=== PATIENT | male | born 1955 | race Caucasian/White ===

== ENCOUNTER 2017-02-18 08:26 | Outpatient (CLI) | payer MEDICARE, MEDICAID | END 2017-02-18 08:27 | disposition home or self-care (01) | DX: I25.10 Atherosclerotic heart disease of native coronary artery without angina pectoris (principal) ==

== ENCOUNTER 2017-05-30 06:09 | Emergency (ER) | payer MEDICARE, MEDICAID ==
--- NOTE | 2017-05-30 07:02 | XRAY Preliminary Report ---
Exam: XR Foot 3 View LT IMPRESSION: 1. No acute fracture or dislocation seen. [facility] SITE ID: [id number]
--- NOTE | 2017-05-30 07:03 | XRAY Preliminary Report ---
Exam: XR Tib/Fib LT IMPRESSION: 1. No acute osseous abnormality seen. 2. Soft tissue swelling. [facility] SITE ID: [id number]
--- NOTE | 2017-05-30 07:04 | XRAY Report ---
EXAM: LEFT FOOT RADIOGRAPHY EXAM DATE: 05/30/2017 06:52 AM. CLINICAL HISTORY: Pain after injury. COMPARISON: None. TECHNIQUE: 3 views. FINDINGS: Bones: No acute fracture seen. Joints: No dislocation. Joint spaces are relatively well preserved. Soft Tissues: Soft tissue swelling. IMPRESSION: 1. No acute fracture or dislocation seen. [facility] Referring Provider Line: [phone] SITE ID: [id number]
--- NOTE | 2017-05-30 07:05 | XRAY Report ---
EXAM: LEFT TIBIA/FIBULA RADIOGRAPHY EXAM DATE: 05/30/2017 06:52 AM. CLINICAL HISTORY: Pain after injury. COMPARISON: None. TECHNIQUE: 2 views. FINDINGS: Bones: No acute fracture seen. Joints: No dislocation. No obvious joint effusion. Soft Tissues: Soft tissue swelling. IMPRESSION: 1. No acute osseous abnormality seen. 2. Soft tissue swelling. [facility] Referring Provider Line: [phone] SITE ID: [id number]
[2017-05-30] MEDS ORDERED: cefTRIAXone 1 GM VIAL IM STA (07:35)
[2017-05-30] MEDS ORDERED: TETANUS/DIPHTHERIA/PERTUSSIS 0.5 ML SYRINGE IM ONE ×2 (07:35→07:46)
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
[2017-05-30] MEDS ORDERED: LIDOCAINE 1% 2 ML VIAL ONE (07:45)
[2017-05-30] MEDS ORDERED: cefTRIAXone 1 GM VIAL ONE (07:46)
[2017-05-30 08:17] VITALS: BP 130/65
== END 2017-05-30 08:17 | disposition home or self-care (01) ==
LOC: ED 06:09
DX: T24.231A Burn of second degree of right lower leg, initial encounter (principal); T31.0 Burns involving less than 10% of body surface; S80.12XA Contusion of left lower leg, initial encounter; S90.32XA Contusion of left foot, initial encounter; S80.812A Abrasion, left lower leg, initial encounter; V28.4XXA Motorcycle driver injured in noncollision transport accident in traffic accident, initial encounter; Y92.410 Unspecified street and highway as the place of occurrence of the external cause; L03.116 Cellulitis of left lower limb; Z23 Encounter for immunization; I10 Essential (primary) hypertension; E11.9 Type 2 diabetes mellitus without complications; Z79.84 Long term (current) use of oral hypoglycemic drugs; Z79.02 Long term (current) use of antithrombotics/antiplatelets; Z95.5 Presence of coronary angioplasty implant and graft; F17.200 Nicotine dependence, unspecified, uncomplicated
CPT/HCPCS: 90471; 96372; 99283

== ENCOUNTER 2017-06-04 08:00 | Outpatient (CLI) | payer MEDICARE, MEDICAID ==
[2017-06-04 14:03] LABS: BASOPHILS # (AUTO) 0.1 10^3/uL (0.0-0.1); BASOPHILS % (AUTO) 0.9 %; EOSINOPHILS # (AUTO) 0.1 10^3/uL (0.0-0.7); EOSINOPHILS % (AUTO) 0.7 %; HGB - HEMOGLOBIN 11.5 g/dL (14.0-18.0); LYMPHOCYTES # (AUTO) 1.4 10^3/uL (1.5-3.5); LYMPHOCYTES % (AUTO) 13.2 %; MEAN CORPUSCULAR HEMOGLOBIN 30.2 pg (27.0-31.0); MEAN CORPUSCULAR HGB CONC 33.8 g/dL (32.0-36.0); MEAN CORPUSCULAR VOLUME 89.3 fL (80.0-94.0); MEAN PLATELET VOLUME 9.4 fL (7.4-11.4); MONOCYTES # (AUTO) 1.1 10^3/uL (0.0-1.0); NEUTROPHILS % (AUTO) 75.2 %; RED BLOOD COUNT 3.81 10^6/uL (4.70-6.10); RED CELL DISTRIBUTION WIDTH 13.6 % (12.0-15.0); UNCORRECTED WHITE BLOOD COUNT 10.6 x10^3/uL; WHITE BLOOD COUNT 10.6 x10^3/uL (4.8-10.8)
[2017-06-04 14:29] LABS: BILIRUBIN,DIRECT 0.1 mg/dL (0.1-0.5); BUN - BLOOD UREA NITROGEN 19 mg/dL (6-20); CARBON DIOXIDE - CO2 23 mmol/L (21-32); CHLORIDE 102 mmol/L (101-111); CHOL/HDL RATIO 3.1 (<5.0); CHOLESTEROL 132 mg/dL; GFR - MDRD 76 (>89); GLUCOSE 180 mg/dL (70-100); HDL CHOLESTEROL 42 mg/dL; LDL/HDL RATIO 1.7 (<3.6); POTASSIUM 4.4 mmol/L (3.5-5.0); SODIUM 134 mmol/L (135-145); TOTAL PROTEIN 6.7 g/dL (6.7-8.2); TRIGLYCERIDES 83 mg/dL; VLDL CHOLESTEROL 17 mg/dL
[2017-06-04 14:55] LABS: HEMOGLOBIN A1C 0.6 g/dL
[2017-06-04 14:58] LABS: THYROID STIMULATING HORMONE 0.99 uIU/mL (0.34-5.60)
== END 2017-06-04 08:01 | disposition home or self-care (01) ==
LOC: LAB.N 08:00
DX: F31.9 Bipolar disorder, unspecified (principal)
CPT/HCPCS: 36415; 80053; 80061; 82248; 82306; 83036; 84439; 84443; 84481; 85025

== ENCOUNTER 2017-07-29 10:28 | Emergency (ER) | payer MEDICARE, MEDICAID ==
[2017-07-29 10:39] VITALS: BP 136/88
[2017-07-29 11:27] LABS: BILIRUBIN,URINE NEGATIVE (NEGATIVE)
[2017-07-29 11:28] LABS: UA CHARGE (STRIP ONLY) YES; UR CULTURE IF IND NOT INDICATED
== END 2017-07-29 12:10 | disposition left against medical advice (07) ==
LOC: ED 10:28
DX: F31.9 Bipolar disorder, unspecified (principal); Z53.21 Procedure and treatment not carried out due to patient leaving prior to being seen by health care provider
CPT/HCPCS: 80306; 81001; 81003; 87086; 99282

== ENCOUNTER 2017-08-09 20:21 | Outpatient (CLI) | payer MEDICARE, MEDICAID | END 2017-08-09 20:22 | disposition EMS.NT | LOC: EMS 20:21 | PROVIDERS: ATTEND Surgery | DX: S11.83XA Puncture wound without foreign body of other specified part of neck, initial encounter (principal); X99.1XXA Assault by knife, initial encounter ==

== ENCOUNTER 2018-01-20 11:40 | Outpatient (CLI) | payer MEDICARE, MEDICAID | END 2018-01-20 11:41 | disposition short-term general hospital (02) | LOC: EMS 11:40 | PROVIDERS: ATTEND Surgery | DX: R41.82 Altered mental status, unspecified (principal); R47.81 Slurred speech; R56.9 Unspecified convulsions | CPT/HCPCS: A0425; A0433 ==

== ENCOUNTER 2018-01-28 10:14 | Emergency (ER) | payer MEDICARE, MEDICAID ==
[2018-01-28 11:17] LABS: BILIRUBIN,URINE NEGATIVE (NEGATIVE); GLUCOSE, URINE (UA) NEGATIVE (NEGATIVE); KETONES,URINE (UA) NEGATIVE (NEGATIVE); LEUKOCYTE ESTERASE, URINE NEGATIVE (NEGATIVE); NITRITE,URINE NEGATIVE (NEGATIVE); OCCULT BLOOD,URINE NEGATIVE (NEGATIVE); PH,URINE 5.5 PH (5.0-7.5); PROTEIN,URINE NEGATIVE (NEGATIVE); UROBILINOGEN,URINE 0.2 (NORMAL) E.U./dL (NORMAL)
[2018-01-28 11:19] LABS: CLARITY,URINE CLEAR (CLEAR)
[2018-01-28] MEDS ORDERED: DEXAMETHASONE 10 MG/ML VIAL IVP STA (11:32)
[2018-01-28] MEDS ORDERED: SODIUM CHLORIDE 0.9% 1,000 ML IV ONE (11:32)
[2018-01-28 11:46] LABS: BASOPHILS # (AUTO) 0.1 10^3/uL (0.0-0.1); BASOPHILS % (AUTO) 0.7 %; EOSINOPHILS # (AUTO) 0.2 10^3/uL (0.0-0.7); EOSINOPHILS % (AUTO) 2.2 %; HGB - HEMOGLOBIN 12.9 g/dL (14.0-18.0); LYMPHOCYTES # (AUTO) 2.5 10^3/uL (1.5-3.5); LYMPHOCYTES % (AUTO) 26.3 %; MEAN CORPUSCULAR HEMOGLOBIN 29.6 pg (27.0-31.0); MEAN CORPUSCULAR HGB CONC 33.8 g/dL (32.0-36.0); MEAN CORPUSCULAR VOLUME 87.6 fL (80.0-94.0); MEAN PLATELET VOLUME 7.8 fL (7.4-11.4); MONOCYTES # (AUTO) 0.9 10^3/uL (0.0-1.0); MONOCYTES % (AUTO) 9.9 %; NEUTROPHILS # (AUTO) 5.7 10^3/uL (1.5-6.6); NEUTROPHILS % (AUTO) 60.9 %; PLT - PLATELET COUNT 301 10^3/uL (130-450); RED BLOOD COUNT 4.34 10^6/uL (4.70-6.10); RED CELL DISTRIBUTION WIDTH 14.5 % (12.0-15.0); WHITE BLOOD COUNT 9.4 x10^3/uL (4.8-10.8)
[2018-01-28 11:57] LABS: INR 1.1 (0.8-1.2); PT - PROTHROMBIN TIME 12.4 secs (9.9-12.6)
[2018-01-28 12:06] LABS: ALBUMIN 3.8 g/dL (3.2-5.5); ALBUMIN/GLOBULIN RATIO 1.1 (1.0-2.2); BILIRUBIN,TOTAL 0.5 mg/dL (0.2-1.0); CALCIUM 9.2 mg/dL (8.5-10.3); CREATININE 0.6 mg/dL (0.6-1.2); TOTAL PROTEIN 7.2 g/dL (6.7-8.2)
--- NOTE | 2018-01-28 12:29 | ED Physician Documentation ---
History of Present Illness - Stated complaint Stated Complaint: BACK PX - Chief complaint Chief Complaint: Back Pain - History obtained from History obtained from: Patient, Family - History of Present Illness Timing: Yesterday - Additonal information Additional information: 62 y/o male has had a recent CVA and he has returned from the hospital and has been doing well at home. He has developed some leg spasms and some pain in his back that is severe. He has been very uncomfortable with the spasms and they are well localized to the T/L junction on the left side and the spasms of the legs. Review of Systems Constitutional: denies: Fever Eyes: denies: Decreased vision Ears: denies: Ear pain Nose: denies: Rhinorrhea / runny nose, Congestion Throat: denies: Sore throat Cardiac: denies: Chest pain / pressure, Palpitations Respiratory: reports: Cough. denies: Dyspnea GI: denies: Abdominal Pain, Nausea, Vomiting : denies: Dysuria, Frequency Skin: denies: Rash Musculoskeletal: reports: Back pain, Extremity pain. denies: Neck pain, Joint pain, Extremity swelling Neurologic: denies: Generalized weakness, Focal weakness, Numbness PD PAST MEDICAL HISTORY - Past Medical History Cardiovascular: Hypertension Neuro: CVA Endocrine/Autoimmune: Type 2 diabetes Psych: Anxiety, Bipolar disorder - Past Surgical History Past Surgical History: Yes Cardiovascular: Coronary stent - Present Medications Home Medications: Ambulatory Orders Medication Instructions Recorded Confirmed Apixaban [Eliquis] 5 mg PO BID 01/28/18 Cyclobenzaprine [Flexeril] 10 mg PO TID PRN #20 tablet 01/28/18 HYDROcod/ACETAM 5/325 [[place] 5/325] 1 - 2 ea PO Q6H PRN #15 tablet 01/28/18 metFORMIN [Glucophage] 0 BID 01/28/18 - Allergies Allergies/Adverse Reactions: Allergies Allergy/AdvReac Type Severity Reaction Status Date / Time amoxicillin Allergy Unknown Verified 01/28/18 10:24 - Social History Does the pt smoke?: Yes Smoking Status: Current every day smoker Does the pt drink ETOH?: No Does the pt have substance abuse?: Yes - Immunizations Immunizations are current?: No - POLST Patient has POLST: No PD ED PE NORMAL - Vitals Vital signs reviewed: Yes (hypertensive mild ) - General General: Alert and oriented X 3, No acute distress, Well developed/nourished - HEENT HEENT: Atraumatic, PERRL, EOMI, Other (dry mucous membranes) - Neck Neck: Supple, no meningeal sign, No bony TTP - Cardiac Cardiac: RRR, No murmur - Respiratory Respiratory: No respiratory distress, Clear bilaterally, Other (There is pain to palpation to the paraspinous muscles on the left at the T/L junction ) - Abdomen Abdomen: Soft, Non tender - Back Back: Other (right paraspinous muscle tenderness) - Derm Derm: Normal color, Warm and dry, No rash - Extremities Extremities: No deformity, No edema - Neuro Neuro: Alert and oriented X 3, No motor deficit, No sensory deficit, Normal speech Eye Opening: Spontaneous Motor: Obeys Commands Verbal: Oriented GCS Score: 15 - Psych Psych: Normal mood, Normal affect Results - Vitals Vitals: Vital Signs - 24 hr 01/28/18 10:17 Temperature 36.3 C L Heart Rate 81 Respiratory 16 Rate Blood Pressure 128/92 H O2 Saturation 98 Oxygen O2 Source Room air - Labs Labs: Laboratory Tests 01/28/18 01/28/18 01/28/18 11:02 11:39 11:39 WBC 9.4 RBC 4.34 L Hgb 12.9 L Hct 38.1 L MCV 87.6 MCH 29.6 MCHC 33.8 RDW 14.5 Plt Count 301 MPV 7.8 Neut # 5.7 Lymph # 2.5 [place] # 0.9 Eos # 0.2 Baso # 0.1 Absolute Nucleated RBC 0.00 Nucleated RBC % 0.0 PT 12.4 INR 1.1 Sodium Potassium Chloride Carbon Dioxide Anion Gap BUN Creatinine Estimated GFR (MDRD) Glucose Calcium Total Bilirubin AST ALT Alkaline Phosphatase Troponin I Total Protein Albumin Globulin Albumin/Globulin Ratio Lipase Urine Color YELLOW Urine Clarity CLEAR Urine pH 5.5 Ur Specific [place] 1.020 Urine Protein NEGATIVE Urine Glucose (UA) NEGATIVE Urine Ketones NEGATIVE Urine Occult Blood NEGATIVE Urine Nitrite NEGATIVE Urine Bilirubin NEGATIVE Urine Urobilinogen 0.2 (NORMAL) Ur Leukocyte Esterase NEGATIVE Ur Microscopic Review NOT INDICATED Urine Culture Comments NOT INDICATED 01/28/18 01/28/18 11:39 11:39 WBC RBC Hgb Hct MCV MCH MCHC RDW Plt Count MPV Neut # Lymph # [place] # Eos # Baso # Absolute Nucleated RBC Nucleated RBC % PT INR Sodium 132 L Potassium 4.3 Chloride 99 L Carbon Dioxide 25 Anion Gap 8.0 BUN 21 H Creatinine 0.6 Estimated GFR (MDRD) 137 Glucose 109 H Calcium 9.2 Total Bilirubin 0.5 AST 17 ALT 31 Alkaline Phosphatase 60 Troponin I < 0.04 Total Protein 7.2 Albumin 3.8 Globulin 3.4 Albumin/Globulin Ratio 1.1 Lipase 10 L Urine Color Urine Clarity Urine pH Ur Specific [place] Urine Protein Urine Glucose (UA) Urine Ketones Urine Occult Blood Urine Nitrite Urine Bilirubin Urine Urobilinogen Ur Leukocyte Esterase Ur Microscopic Review Urine Culture Comments Procedures - IVC sono (time) 1135 Bedside IVC sono: IVC measures (cm) (1.09), IVC collapsed c insp (cm) (complete) , Dehydration (est 2 liter deficit) 1320 Bedside IVC sono: IVC measures (cm) (1.42), IVC collapsed c insp (cm) (0.88), Dehydration (minimal now) PD MEDICAL DECISION MAKING - ED course Complexity details: reviewed results, re-evaluated patient, considered differential, d/w patient, d/w family ED course: 62-year-old male with recent CVA has developed acute muscle spasm in his back and he is found to be dehydrated. He is administered a liter of saline and has improvement in his back pain with this. He is requesting some pain medication for over the weekend if his needed. He does have a history of diabetes but his sugars today are OK. Departure - Departure Disposition: 01 Home, Self Care Clinical Impression: Back muscle spasm, Dehydration Condition: Stable Instructions: ED Spasm Back No Trauma, ED Dehydration Follow-Up: Akbar Avina MD [Primary Care Provider] - Prescriptions: Cyclobenzaprine [Flexeril] 10 mg PO TID PRN #20 tablet PRN Reason: Spasms HYDROcod/ACETAM 5/325 [[place] 5/325] 1 - 2 ea PO Q6H PRN #15 tablet PRN Reason: Pain
[2018-01-28 13:33] VITALS: BP 135/96
== END 2018-01-28 13:30 | disposition home or self-care (01) ==
LOC: ED 10:14
DX: E86.0 Dehydration (principal); M62.830 Muscle spasm of back; I10 Essential (primary) hypertension; E11.9 Type 2 diabetes mellitus without complications; Z86.73 Personal history of transient ischemic attack (TIA), and cerebral infarction without residual deficits; Z79.84 Long term (current) use of oral hypoglycemic drugs; Z79.01 Long term (current) use of anticoagulants; F17.200 Nicotine dependence, unspecified, uncomplicated
CPT/HCPCS: 36415; 80053; 81001; 81003; 83690; 84484; 85025; 85610; 87086; 96361; 96374; 99283; 99284

== ENCOUNTER 2018-04-02 00:37 | Emergency (ER) | payer MEDICARE, MEDICAID ==
[2018-04-02 01:09] LABS: BASOPHILS # (AUTO) 0.1 10^3/uL (0.0-0.1); BASOPHILS % (AUTO) 1.4 %; EOSINOPHILS # (AUTO) 0.1 10^3/uL (0.0-0.7); EOSINOPHILS % (AUTO) 1.7 %; HGB - HEMOGLOBIN 14.6 g/dL (14.0-18.0); LYMPHOCYTES % (AUTO) 12.8 %; MEAN CORPUSCULAR HEMOGLOBIN 29.7 pg (27.0-31.0); MEAN CORPUSCULAR HGB CONC 34.3 g/dL (32.0-36.0); MEAN CORPUSCULAR VOLUME 86.5 fL (80.0-94.0); MEAN PLATELET VOLUME 8.9 fL (7.4-11.4); MONOCYTES # (AUTO) 0.9 10^3/uL (0.0-1.0); MONOCYTES % (AUTO) 10.7 %; NEUTROPHILS % (AUTO) 73.4 %; PLT - PLATELET COUNT 232 10^3/uL (130-450); RED BLOOD COUNT 4.92 10^6/uL (4.70-6.10); RED CELL DISTRIBUTION WIDTH 14.7 % (12.0-15.0); WHITE BLOOD COUNT 8.2 x10^3/uL (4.8-10.8)
[2018-04-02 01:22] LABS: ALBUMIN/GLOBULIN RATIO 1.1 (1.0-2.2); BILIRUBIN,TOTAL 1.2 mg/dL (0.2-1.0); TOTAL PROTEIN 7.5 g/dL (6.7-8.2)
[2018-04-02 01:28] LABS: TROPONIN I < 0.04 ng/mL (<0.49)
[2018-04-02 01:30] LABS: CREATINE KINASE MB 4.9 ng/mL (0.6-6.3)
[2018-04-02 01:32] LABS: CALCIUM 9.1 mg/dL (8.5-10.3)
--- NOTE | 2018-04-02 01:32 | ED Physician Documentation ---
PD HPI DYSPNEA - Stated complaint Stated Complaint: DIFF BREATHING - Chief complaint Chief Complaint: Resp - History obtained from History obtained from: Patient - History of Present Illness Timing - onset: How many days ago (2) Timing - duration: Days (2) Timing - details: Intermittant Improved by: Rest Worsened by: Exertion, Laying flat, Coughing Associated symptoms: Cough, Chest pain / discomfort (pleuritic). No: Fever - Additional information Additional information: complains of chest congestion, cough, pleuritic chest pain. Symptoms have been for two days. He feels shortness of breath at times. Review of Systems Constitutional: reports: Reviewed and negative Throat: denies: Sore throat Cardiac: reports: Chest pain / pressure (mild pleuritic chest pain). denies: Palpitations Respiratory: reports: Dyspnea (mild, intermittent), Cough GI: reports: Reviewed and negative PD PAST MEDICAL HISTORY - Past Medical History Past Medical History: Yes Cardiovascular: Hypertension, [place] Respiratory: Asthma, Sleep apnea, CPAP use Neuro: None Endocrine/Autoimmune: Type 2 diabetes HEENT: None Psych: Anxiety, Bipolar disorder - Past Surgical History Past Surgical History: Yes Cardiovascular: Coronary stent - Present Medications Home Medications: Ambulatory Orders Medication Instructions Recorded Confirmed Apixaban [Eliquis] 5 mg PO BID 01/28/18 Cyclobenzaprine [Flexeril] 10 mg PO TID PRN #20 tablet 01/28/18 HYDROcod/ACETAM 5/325 [[place] 5/325] 1 - 2 ea PO Q6H PRN #15 tablet 01/28/18 metFORMIN [Glucophage] 0 BID 01/28/18 Albuterol Sulfate [Proventil Hfa 1 - 2 puffs INH Q4H PRN #1 inhaler 04/02/18 Inhaler] guaiFENesin/CODEINE [Robitussin AC] 5 ml PO Q6H PRN #60 udc 04/02/18 - Allergies Allergies/Adverse Reactions: Allergies Allergy/AdvReac Type Severity Reaction Status Date / Time amoxicillin Allergy Unknown Verified 01/28/18 10:24 - Social History Does the pt smoke?: Yes Smoking Status: Current every day smoker Does the pt drink ETOH?: No Does the pt have substance abuse?: Yes Substance Use and Type: Marijuana - Immunizations Immunizations are current?: No - POLST Patient has POLST: No PD ED PE NORMAL - Vitals Vital signs reviewed: Yes - General General: Alert and oriented X 3, No acute distress, Well developed/nourished, Other (speaks in long, full sentences; has to be refocused on topic at times) - Neck Neck: Supple, no meningeal sign - Cardiac Cardiac: RRR, No murmur - Respiratory Respiratory: No respiratory distress, Clear bilaterally - Abdomen Abdomen: Soft, Non tender - Extremities Extremities: No edema Results - Vitals Vitals: Oxygen O2 Source Room air Oxygen Flow Rate 2 - EKG (time done) No standard instances Rate: Rate (enter#) (86) Rhythm: NSR [place]: Normal Intervals: Normal MS QRS: Normal Ischemia: Normal ST segments, Q waves (V1-V3) - Labs Labs: Laboratory Tests 04/02/18 04/02/18 04/02/18 00:54 01:00 01:00 WBC RBC Hgb Hct MCV MCH MCHC RDW Plt Count MPV Neut # Lymph # [place] # Eos # Baso # Absolute Nucleated RBC Nucleated RBC % Sodium 133 L Potassium 4.1 Chloride 101 Carbon Dioxide 22 Anion Gap 10.0 BUN 17 Creatinine 1.0 Estimated GFR (MDRD) 76 L Glucose 130 H POC Whole Bld Glucose 126 H Calcium 9.1 Total Bilirubin 1.2 H AST 20 ALT 19 Alkaline Phosphatase 71 Total Creatine Kinase 226 CK-MB (CK-2) 4.9 Troponin I < 0.04 B-Natriuretic Peptide Total Protein 7.5 Albumin 4.0 Globulin 3.5 Albumin/Globulin Ratio 1.1 Lipase 17 L 04/02/18 04/02/18 01:00 01:00 WBC 8.2 RBC 4.92 Hgb 14.6 Hct 42.5 MCV 86.5 MCH 29.7 MCHC 34.3 RDW 14.7 Plt Count 232 MPV 8.9 Neut # 6.0 Lymph # 1.0 L [place] # 0.9 Eos # 0.1 Baso # 0.1 Absolute Nucleated RBC 0.00 Nucleated RBC % 0.0 Sodium Potassium Chloride Carbon Dioxide Anion Gap BUN Creatinine Estimated GFR (MDRD) Glucose POC Whole Bld Glucose Calcium Total Bilirubin AST ALT Alkaline Phosphatase Total Creatine Kinase CK-MB (CK-2) Troponin I B-Natriuretic Peptide 71 Total Protein Albumin Globulin Albumin/Globulin Ratio Lipase - Rads (name of study) chest xray Radiology: Prelim report reviewed, See rad report PD MEDICAL DECISION MAKING - ED course Complexity details: reviewed results, re-evaluated patient, considered differential, d/w patient Departure - Departure Disposition: 01 Home, Self Care Clinical Impression: Bronchitis Condition: Good Instructions: ED Upper Resp Infec No Abx Tx Prescriptions: Albuterol Sulfate [Proventil Hfa Inhaler] 1 - 2 puffs INH Q4H PRN #1 inhaler PRN Reason: Shortness Of Air/Wheezing guaiFENesin/CODEINE [Robitussin AC] 5 ml PO Q6H PRN #60 udc PRN Reason: Cough Discharge Date/Time: 04/02/18 04:42
[2018-04-02] MEDS ORDERED: ALBUTEROL NEB 2.5 MG/3 ML INH STA (01:44)
--- NOTE | 2018-04-02 03:43 | XRAY Preliminary Report ---
Exam: XR CHEST 2 VIEW X-RAY IMPRESSION: 1. Bronchial wall thickening. This can be seen with bronchitis or reactive airways disease. 2. Mild cardiomegaly. [facility] SITE ID: [id number]
--- NOTE | 2018-04-02 03:43 | XRAY Report ---
EXAM: CHEST RADIOGRAPHY EXAM DATE: 04/02/2018 03:05 AM. CLINICAL HISTORY: Productive cough. Back pain. Dyspnea. Congestion. COMPARISON: None. TECHNIQUE: 2 views. FINDINGS: Lungs/Pleura: No alveolar consolidation seen. No pleural effusion. Bronchial wall thickening. No pneu mothorax. Mediastinum: Mild cardiomegaly. Tortuous aorta. Other: None. IMPRESSION: 1. Bronchial wall thickening. This can be seen with bronchitis or reactive airways disease. 2. Mild cardiomegaly. [facility] Referring Provider Line: [phone] SITE ID: [id number]
[2018-04-02] MEDS ORDERED: guaiFENesin/CODEINE 5 ML UDC PO STA (04:23)
[2018-04-02 04:34] VITALS: BP 119/80
== END 2018-04-02 04:42 | disposition home or self-care (01) ==
LOC: ED 00:37
DX: J40 Bronchitis, not specified as acute or chronic (principal); I10 Essential (primary) hypertension; F17.200 Nicotine dependence, unspecified, uncomplicated; I25.2 Old myocardial infarction; E11.9 Type 2 diabetes mellitus without complications; Z95.5 Presence of coronary angioplasty implant and graft; Z79.891 Long term (current) use of opiate analgesic; Z79.51 Long term (current) use of inhaled steroids; Z79.01 Long term (current) use of anticoagulants; Z79.84 Long term (current) use of oral hypoglycemic drugs
CPT/HCPCS: 36415; 71046; 80053; 82550; 82553; 83690; 83880; 84484; 85025; 93005; 94640; 99283; 99284; A9270

== ENCOUNTER 2018-04-05 09:31 | Outpatient (CLI) | payer MEDICARE, MEDICAID ==
[2018-04-05 17:27] LABS: BASOPHILS # (AUTO) 0.1 10^3/uL (0.0-0.1); EOSINOPHILS # (AUTO) 0.2 10^3/uL (0.0-0.7); EOSINOPHILS % (AUTO) 2.7 %; HGB - HEMOGLOBIN 14.2 g/dL (14.0-18.0); LYMPHOCYTES # (AUTO) 2.4 10^3/uL (1.5-3.5); LYMPHOCYTES % (AUTO) 31.8 %; MEAN CORPUSCULAR HEMOGLOBIN 28.8 pg (27.0-31.0); MEAN CORPUSCULAR HGB CONC 32.9 g/dL (32.0-36.0); MEAN CORPUSCULAR VOLUME 87.6 fL (80.0-94.0); MEAN PLATELET VOLUME 9.3 fL (7.4-11.4); MONOCYTES # (AUTO) 0.8 10^3/uL (0.0-1.0); MONOCYTES % (AUTO) 10.8 %; NEUTROPHILS # (AUTO) 4.1 10^3/uL (1.5-6.6); NEUTROPHILS % (AUTO) 53.7 %; PLT - PLATELET COUNT 279 10^3/uL (130-450); RED BLOOD COUNT 4.94 10^6/uL (4.70-6.10); RED CELL DISTRIBUTION WIDTH 14.6 % (12.0-15.0); WHITE BLOOD COUNT 7.6 x10^3/uL (4.8-10.8)
[2018-04-05 17:44] LABS: ALBUMIN 4.1 g/dL (3.2-5.5); ALBUMIN/GLOBULIN RATIO 1.2 (1.0-2.2); ALKALINE PHOSPHATASE 68 IU/L (42-121); ALT ALANINE AMINOTRANSFERASE 30 IU/L (10-60); AST ASPARTATE AMINOTRANSFERASE 26 IU/L (10-42); BUN - BLOOD UREA NITROGEN 27 mg/dL (6-20); CARBON DIOXIDE - CO2 23 mmol/L (21-32); CHLORIDE 101 mmol/L (101-111); CHOL/HDL RATIO 7.3 (<5.0); CHOLESTEROL 196 mg/dL; CREATININE 0.9 mg/dL (0.6-1.2); GFR - MDRD 86 (>89); GLUCOSE 146 mg/dL (70-100); HDL CHOLESTEROL 27 mg/dL; LDL CHOLESTEROL,CALCULATED 151 mg/dL; LDL/HDL RATIO 5.6 (<3.6); SODIUM 133 mmol/L (135-145); TOTAL PROTEIN 7.6 g/dL (6.7-8.2); VLDL CHOLESTEROL 18 mg/dL
[2018-04-05 17:52] LABS: HB2 TOTAL 16.2 g/dL; HEMOGLOBIN A1C 0.86 g/dL
== END 2018-04-05 09:32 | disposition home or self-care (01) ==
LOC: LAB.F 09:31
PROVIDERS: ATTEND Family Medicine
DX: E78.5 Hyperlipidemia, unspecified (principal); E11.9 Type 2 diabetes mellitus without complications; D64.9 Anemia, unspecified; E86.0 Dehydration; F41.9 Anxiety disorder, unspecified
CPT/HCPCS: 36415; 80053; 80061; 83036; 83721; 84443; 85025

== ENCOUNTER 2018-08-24 10:34 | Outpatient (CLI) | payer MEDICARE, MEDICAID ==
[2018-08-24 13:14] LABS: CREATININE 0.5 mg/dL (0.6-1.2)
[2018-08-24 13:30] LABS: HB2 TOTAL 16.1 g/dL; HEMOGLOBIN A1C 1.51 g/dL; HEMOGLOBIN A1C % 10.7 % (4.6-6.2)
== END 2018-08-24 10:35 ==
LOC: LAB.N 10:34
PROVIDERS: ATTEND Family Medicine
DX: E11.9 Type 2 diabetes mellitus without complications (principal)
CPT/HCPCS: 36415; 80048; 83036